=== PATIENT | female | born 1990 | race Caucasian/White ===

== ENCOUNTER 2019-02-06 10:37 | Emergency (ER) | payer SELFPAY ==
[~2019-02-06] VITALS: Ht 175.3 cm; Wt 83.9 kg
[~2019-02-06 10:37] MED LIST: CIPRO 500MG TA500 MG PO; MOTRIN 600600 MG/TAB PO; NEXPLANON68 MG ID; NO HOME MEDICATIONS; PERCOCET 325 MG1 TA2 PO; PRENATAL1 TA5 PO; ZOFRAN 4MG T4 MG/TAB PO
[2019-02-06 10:47] VITALS: BP 132/78; TEMP 97.6
[2019-02-06] MEDS ORDERED: AMOXICILLIN 50500 MG PO (11:04)
[2019-02-06 11:30] VITALS: PULSE 73
== END 2019-02-06 11:37 | disposition home or self-care (01) ==
LOC: COL.ER 10:37
DX: K02.9 Dental caries, unspecified (principal)

== ENCOUNTER 2019-05-14 10:35 | Emergency (ER) | payer SELFPAY ==
[~2019-05-14] VITALS: Ht 175.3 cm; Wt 81.8 kg
[~2019-05-14 10:35] MED LIST changes: +AMOXICILLIN 50500 MG PO
[2019-05-14 10:42] VITALS: BP 128/78; TEMP 98.7
[2019-05-14 11:50] VITALS: PULSE 95
[2019-05-14] MEDS ORDERED: PREDNISONE20 MG PO (11:52)
== END 2019-05-14 11:53 | disposition home or self-care (01) ==
LOC: COL.ER 10:35
DX: J06.9 Acute upper respiratory infection, unspecified (principal); R06.2 Wheezing

== ENCOUNTER 2019-06-06 09:32 | Emergency (ER) | payer OTHER ==
[~2019-06-06] VITALS: Ht 175.3 cm; Wt 84.1 kg
[~2019-06-06 09:32] MED LIST changes: +PREDNISONE20 MG PO
[2019-06-06 11:02] VITALS: BP 132/70; TEMP 98
[2019-06-06 11:15] VITALS: PULSE 79
== END 2019-06-06 11:15 | disposition home or self-care (01) ==
LOC: COL.ER 09:32
DX: J11.1 Influenza due to unidentified influenza virus with other respiratory manifestations (principal); F17.210 Nicotine dependence, cigarettes, uncomplicated